=== PATIENT | male | born 1980 | race Caucasian/White ===

== ENCOUNTER 2016-06-25 21:13 | Emergency (ER) | payer MEDICARE, OTHER ==
[2016-06-25] MEDS ORDERED: NORCO 5/325 MG PO ONE (21:31)
[2016-06-25] MEDS ORDERED: Rocephin 1000 MG INJ IM ONE (21:31)
--- NOTE | 2016-06-25 21:37 | ERPHSYRPT ---
- History of Present Illness Time Seen by Provider: 06/25/16 21:25 Source: patient Exam Limitations: no limitations Physician History: 2 WEEKS AGO PT HAD A SINUS INFECTION AND TOOK AMOXIL FOR 10 DAYS. YESTERDAY PT HAD A SORE THROAT, SUBJECTIVE FEVER, CHILLS, DIZZINESS AND DIAPHORESIS. PT ALSO C/O A COUGH FOR YEARS SOMETIMES PRODUCTIVE OF YELLOW PHLEGM. Home Medications: Paroxetine HCl [Paxil] 20 mg PO DAILY 06/25/16 [History] - Review of Systems Constitutional: Fever, Chills Ears, Nose, & Throat: Throat Pain Respiratory: Cough Neurological: Dizziness Endocrine: Excessive Sweating All Other Systems: Reviewed and Negative - Physical Exam General Appearance: alert Eye Exam: PERRL/EOMI Ears, Nose, Throat Exam: pharyngeal erythema, other (CERUMEN OCCLUSION OF BOTH EARS; TONSILS ERYTHEMATOUS.) Neck Exam: other (MILD TENDERNESS OVER ANTERIOR CERVICAL LYMPH NODE CHAIN.) Respiratory Exam: lungs clear Cardiovascular Exam: normal heart sounds Gastrointestinal/Abdomen Exam: soft, normal bowel sounds Back Exam: normal range of motion Extremity Exam: No pedal edema Neurologic Exam: alert, cooperative Skin Exam: warm, dry - Course Nursing assessment & vital signs reviewed: Yes - Departure Time of Disposition: 21:41 Departure Disposition: Home Clinical Impression: PHARYNGITIS, TONSILLITIS Condition: Fair Critical Care Time: No Instructions: Pharyngitis/Tonsillopharyngitis -- Adult Additional Instructions: FOLLOW UP WITH PRIVATE DOCTOR TOMORROW. Prescriptions: Guaifenesin/Codeine Phosphate [Robitussin AC Syrup] 10 ml PO Q4H PRN PRN #120 ml PRN Reason: Cough Naproxen [Naprosyn] 500 mg PO [id number] PRN #20 tablet PRN Reason: Pain Azithromycin 250 mg [Zithromax 250 MG TABLET] 250 mg PO ZPACK #6 tablet
[2016-06-25 21:45] VITALS: O2SAT 97
[2016-06-25] MEDS ORDERED: NORCO 5/325 MG ONE (21:57)
[2016-06-25] MEDS ORDERED: Rocephin 1000 MG INJ ONE (21:57)
[2016-06-25 22:25] VITALS: BP 112/73; PULSE 92
== END 2016-06-25 22:24 | disposition home or self-care (01) ==
LOC: ED 21:13
DX: J02.9 Acute pharyngitis, unspecified (principal); J03.90 Acute tonsillitis, unspecified; R50.9 Fever, unspecified; R42 Dizziness and giddiness; R61 Generalized hyperhidrosis
CPT/HCPCS: 96372; 99284; J0696; A9270-GY

== ENCOUNTER 2017-07-21 11:10 | Emergency (ER) | payer OTHER, MEDICARE ==
--- NOTE | 2017-07-21 11:42 | ERPHSYRPT ---
- History of Present Illness Time Seen by Provider: 07/21/17 11:35 Source: patient Exam Limitations: no limitations Patient Subjective Stated Complaint: Pt states "about 3 days ago I started coughing and I noticed i was coughing up thin mucus that was pink. I have really bad anxiety and I have been worried ever since." Triage Nursing Assessment: Pt alert and oriented X 3, skin pwd. Pt ambulates with an upright steady gait, able to speak in clear full sentences. Pt in no apparent respiratory distress. Physician History: The patient is a 36-year-old male complaining that 3 days ago when he was in the shower he coughed and noticed that the sputum had a pink tinge to it. He denies fever or chills. He has slight nausea. Then 2 days ago he coughed when he was in the shower and the sputum had less pink and it. Today he coughed while he was in the shower and there was no pink at all in the sputum. He denies chest pain or shortness of breath. He has severe anxiety and has been worried about pink color to his sputum. He smokes cigarettes. His past medical history is significant for PTSD and anxiety. Today he only wants a chest x-ray. Timing/Duration: day(s) (3) Cough Quality/Degree: mild, sputum, blood streaked sputum Possible Cause: chronic episodes, smoke exposure Modifying Factors: Improves With: nothing Associated Symptoms: other (weakness) Allergies/Adverse Reactions: bee venom protein (honey bee) Allergy (Severe, Verified 07/21/17 11:24) Swelling Iodine and Iodide Containing Produc Allergy (Verified 06/25/16 21:40) Home Medications: Paroxetine HCl [Paxil] 20 mg PO DAILY 06/25/16 [History] Hx Tetanus, Diphtheria Vaccination/Date Given: No Hx Influenza Vaccination/Date Given: No Hx Pneumococcal Vaccination/Date Given: No Immunizations Up to Date: Yes - Review of Systems Constitutional: Weakness, No Fever Eyes: No Symptoms Ears, Nose, & Throat: No Symptoms Respiratory: Cough Cardiac: No Chest Pain, No Edema, No Syncope Abdominal/Gastrointestinal: Nausea Genitourinary Symptoms: No Dysuria Musculoskeletal: No Back Pain, No Neck Pain Skin: No Rash Neurological: No Dizziness, No Focal Weakness, No Sensory Changes Psychological: No Symptoms Endocrine: No Symptoms Hematologic/Lymphatic: No Symptoms Immunological/Allergic: No Symptoms All Other Systems: Reviewed and Negative - Past Medical History Pertinent Past Medical History: Yes Cardiac History: Myocardial Infarction (MT) Psycho-Social History: Anxiety, Panic Disorder, Other Other Medical History: ptsd - Past Surgical History Past Surgical History: Yes Cardiac: Cardiac Catheterization Gastrointestinal: Cholecystectomy Other Surgical History: eye surgery - Social History Smoking Status: Current every day smoker How long have you smoked: 16 years Exposure to second hand smoke: Yes Drug Use: none Patient Lives Alone: No - Nursing Vital Signs Nursing Vital Signs: Initial Vital Signs Temperature 99.2 F 07/21/17 11:19 Pulse Rate 114 H 07/21/17 11:19 Respiratory Rate 18 07/21/17 11:19 Blood Pressure 132/83 07/21/17 11:19 O2 Sat by Pulse Oximetry 100 07/21/17 11:19 Pain Scale Pain Intensity 0 - Physical Exam General Appearance: no apparent distress, alert Eye Exam: PERRL/EOMI, eyes nml inspection Ears, Nose, Throat Exam: normal ENT inspection, TMs normal, pharynx normal, moist mucous membranes Neck Exam: normal inspection, non-tender, supple, full range of motion Respiratory Exam: normal breath sounds, lungs clear, No respiratory distress Cardiovascular Exam: regular rate/rhythm, normal heart sounds Gastrointestinal/Abdomen Exam: soft, No tenderness Rectal Exam: not done Back Exam: normal inspection, No CVA tenderness, No vertebral tenderness Extremity Exam: normal inspection, normal range of motion Neurologic Exam: alert, oriented x 3, cooperative, normal mood/affect, sensation nml, No motor deficits Skin Exam: normal color, warm, dry, No rash Lymphatic Exam: No adenopathy SpO2 Interpretation: normal SpO2: 100 Oxygen Delivery: Room Air - Radiology Exams Chest X-ray Interpretation: Reviewed by me, Teleradiologist Report, Negative (per Dr Morales) Ordered Tests: Active Orders 24 hr Category Date Time Status CHEST 2 VIEWS (PA AND LAT) Stat Exams 07/21/17 11:45 Completed - Progress Progress: unchanged Air Movement: good Blood Culture(s) Obtained: No Antibiotics given: No Counseled pt/family regarding: diagnosis, rad results - Departure Time of Disposition: 12:17 Departure Disposition: Home (cough with blood-tinged sputum) Clinical Impression: Cough Condition: Stable Critical Care Time: No Additional Instructions: The chest x-ray today was completely normal. Follow-up with your primary care physician if your condition reappears.
[2017-07-21 12:05] VITALS: BP 114/86; PULSE 94
--- NOTE | 2017-07-21 12:14 | XRAY ---
Indication: Discolored mucous. Smoking history. Comparison: None PA/lateral chest demonstrates normal heart and lungs with a few incidental tiny calcified granulomas. Bony thorax intact. Impression: Nonacute chest.
[2017-07-21 12:27] VITALS: O2SAT 99
== END 2017-07-21 12:27 | disposition home or self-care (01) ==
LOC: ED 11:10
DX: R05 Cough (principal); R53.1 Weakness; R11.0 Nausea
CPT/HCPCS: 71046; 93041; 99283